=== PATIENT | female | born 1960 | race Caucasian/White ===

== ENCOUNTER 2018-12-04 15:21 | Emergency (ER) | payer OTHER ==
[~2018-12-04] VITALS: Ht 175.3 cm; Wt 138.3 kg
[~2018-12-04 15:21] MED LIST: BENZONATATE100 MG PO; DEPO-PROVE400 MG/1 M IM; IBUPROFEN800 MG PO; PROVENTIL HFA6.7 GM INH; TRAMADOL HCL50 MG PO; ZOFRAN ODT4 MG SL
--- OUTSIDE RECORDS SUMMARY | 2018-12-04 15:24 | XMS ---
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 Hillary VISIT COUNT (12 MO.) 1 JOI Leblanc TOTAL 1 NOTE: Visits indicate total known visits. ED/UCC VISIT TRACKING (12 MO.) 12/04/2018 15:21 JOI Nuno OR TYPE: Emergency COMPLAINT: - LEFT FOOT PAIN NON INJURY INPATIENT VISIT TRACKING (12 MO.) No inpatient visits to display in this time frame [id number]
[2018-12-04] MEDS ORDERED: CYCLOBENZAPRINE10 MG PO (15:54)
== END 2018-12-04 19:44 | disposition home or self-care (01) ==
LOC: ED 15:21
DX: S93.602A Unspecified sprain of left foot, initial encounter (principal); F17.200 Nicotine dependence, unspecified, uncomplicated; Z88.0 Allergy status to penicillin; Z88.2 Allergy status to sulfonamides; X58.XXXA Exposure to other specified factors, initial encounter
CPT/HCPCS: 73630; 99283